=== PATIENT | female | born 1965 | race Caucasian/White ===

== ENCOUNTER 2022-01-29 15:39 | Emergency (ER) | payer SELFPAY ==
[~2022-01-29] VITALS: Ht 157.5 cm; Wt 54.4 kg
[2022-01-29 15:49] VITALS: BP 137/86
--- NOTE | 2022-01-29 17:26 | NUR ---
pt seen by doroteo holloway. xrays was done pt eloped afterwards.
== END 2022-01-29 17:26 | disposition left against medical advice (07) ==
LOC: ER 15:42
DX: Z53.21 Procedure and treatment not carried out due to patient leaving prior to being seen by health care provider (principal); M25.511 Pain in right shoulder
CPT/HCPCS: 71045-TC; 73030-TC